=== PATIENT | male | born 1950 | race Caucasian/White ===

== ENCOUNTER 2016-10-23 17:34 | Emergency (ER) | payer MEDICAID ==
[~2016-10-23] VITALS: Ht 177.8 cm; Wt 91.3 kg
[~2016-10-23 17:34] MED LIST: AMIT50TA PO; AMLO10TA2 PO; ASPI-496 PO; DULO20CA45 PO; ERTA1VIA IM/IV; GABA300C PO; GABA300C10 PO; GABA600T2 PO; INSU100V5 SQ-INSULIN; METF10002 PO; OXYC-302 PO
[2016-10-23] MEDS ORDERED: SODIUM CHLORIDE 0.9% 1,000ML IVBOLUS ONE (18:00)
[2016-10-23] MEDS ORDERED: SODIUM CHLORIDE FLUSH 10ML SYR IVF ONE (18:00)
[2016-10-23 18:15] LABS: HEMATOCRIT 26.5 % (39.2-51.8); HEMOGLOBIN 9.2 g/dL (13.7-18.0); WHITE BLOOD COUNT 8.1 x10^3/uL (3.4-10)
[2016-10-23 18:29] LABS: ASPARTATE AMINO TRANSFERASE 14 U/L (15-37); BLOOD UREA NITROGEN 28 mg/dL (7-18)
[2016-10-23] MEDS ORDERED: OXYC1TAB9 PO (18:53)
[2016-10-23] MEDS ORDERED: CLINDAMYCIN PMX 900MG/50ML 50 ML ONE (19:21)
[2016-10-23] MEDS ORDERED: CLINDAMYCIN PMX 900MG/50ML 50 ML IV ONE (19:30)
[2016-10-23 20:19] VITALS: BP 144/73
== END 2016-10-23 20:58 | disposition left against medical advice (07) ==
LOC: ED 20:30
DX: M86.172 Other acute osteomyelitis, left ankle and foot (principal); E11.65 Type 2 diabetes mellitus with hyperglycemia; I10 Essential (primary) hypertension; E11.42 Type 2 diabetes mellitus with diabetic polyneuropathy; Z89.511 Acquired absence of right leg below knee
CPT/HCPCS: 36415; 73660; 80053; 83605; 84145; 85025; 87040; 87070; 87077; 87186; 87205; 96361; 96374; 99285; J7030

== ENCOUNTER 2016-11-11 00:08 | Inpatient (IN) | payer MEDICAID ==
[~2016-11-11] VITALS: Ht 177.8 cm; Wt 100.5 kg
[~2016-11-11 00:08] MED LIST changes: +OXYC1TAB9 PO
[2016-11-11] MEDS ORDERED: SODIUM CHLORIDE 0.9% 1,000ML IVBOLUS ONE (01:00)
[2016-11-11] MEDS ORDERED: SODIUM CHLORIDE FLUSH 10ML SYR IVF ONE (01:00)
[2016-11-11] MEDS ORDERED: VANCOMYCIN PER PHARMACY MC ONE (01:00)
[2016-11-11] MEDS ORDERED: PIPERACILLIN/TAZO/PMX 3.375GM 50 ML IV ONE (01:00)
[2016-11-11] MEDS ORDERED: PIPERACILLIN/TAZO/PMX 3.375GM 50 ML ONE (01:21)
[2016-11-11 01:28] LABS: HEMOGLOBIN 7.3 g/dL (13.7-18.0)
[2016-11-11] MEDS ORDERED: VANCOMYCIN 1,800 MG in SODIUM CHLORIDE 0.9% 250 ML IV ONE (01:30)
[2016-11-11] MEDS ORDERED: BROM5DRO3 EACHEYE ×2 (01:34→01:36)
[2016-11-11] MEDS ORDERED: PRED1DRO EACHEYE (01:36)
[2016-11-11 01:39] LABS: HEMATOCRIT 21.8 % (39.2-51.8)
[2016-11-11 01:40] LABS: BLOOD UREA NITROGEN 25 mg/dL (7-18)
[2016-11-11 01:45] LABS: ANISOCYTOSIS 1+; OVALOCYTES 2+; POIKILOCYTOSIS 1+
[2016-11-11 01:46] LABS: HYPOCHROMIA 1+
[2016-11-11] MEDS ORDERED: SODIUM CHLORIDE 0.9% 1,000 ML IV ONE (02:38)
[2016-11-11] MEDS ORDERED: MORPHINE SULFATE 4 MG/ML, 1ML ONE (02:54)
[2016-11-11] MEDS ORDERED: ONDANSETRON 2MG/ML, 2ML ONE (02:54)
[2016-11-11] MEDS ORDERED: MORPHINE SULFATE 4 MG/ML, 1ML IVPush PRN (03:00)
[2016-11-11] MEDS ORDERED: ONDANSETRON 2MG/ML, 2ML IVPush PRN ×3 (03:00→13:00)
[2016-11-11 03:30] VITALS: BP 135/71
[2016-11-11] MEDS ORDERED: LABETALOL 5MG/ML, 20ML IVPush PRN (03:30)
[2016-11-11] MEDS ORDERED: PHARMACY MAY ADJ FOR RENAL FX MC PRN (03:30)
[2016-11-11] MEDS ORDERED: HYDROcodone/APAP 5/325 TABLET PO PRN (03:30)
[2016-11-11] MEDS ORDERED: BISACODYL 10 MG SUPP PR PRN (03:30)
[2016-11-11] MEDS ORDERED: ONDANSETRON ODT 4 MG PO PRN (03:30)
[2016-11-11] MEDS: SODIUM CHLORIDE 0.9% 1,000 ML IV SCH ×3 (04:10→17:34)
[2016-11-11] MEDS: morphine SULFATE 10 MG/ML, 1ML IVPush PRN ×4 (04:35→17:30)
[2016-11-11] MEDS: predniSOLONE OPHTH SUSP 1%, 5ML EACHEYE SCH ×4 (06:29→21:12)
[2016-11-11 07:37] VITALS: BP 120/66
[2016-11-11] MEDS: PIPERACILLIN/TAZO/PMX 3.375GM 50 ML IV SCH ×3 (08:13→21:11)
[2016-11-11] MEDS: [UNRECOGNIZED DRUG - OTHER] OP SCH (09:00)
[2016-11-11] MEDS: Bromfenac Sodium (Bromsite) EACHEYE SCH (09:00)
[2016-11-11] MEDS: AMLODIPINE 5 MG TABLET PO SCH (09:46)
[2016-11-11] MEDS: GABAPENTIN 300 MG CAPSULE PO SCH ×3 (09:47→21:12)
[2016-11-11] MEDS: ASPIRIN 81 MG TABLET EC PO SCH (09:47)
[2016-11-11] MEDS: SENNA/DOCUSATE TABLET PO SCH (09:47)
[2016-11-11] MEDS ORDERED: MIDAZOLAM 1 MG/ML, 2ML ONE (12:33)
[2016-11-11] MEDS ORDERED: FENTANYL PF 100 MCG/2ML ONE (12:34)
[2016-11-11] MEDS ORDERED: PROPOFOL 10 MG/ML, 20ML ONE (12:47)
[2016-11-11] MEDS ORDERED: CEFAZOLIN 1,000 MG ONE (12:47)
[2016-11-11] MEDS ORDERED: OXYcodone 5 MG/5 ML ORAL.SOL UDC PO PRN (13:00)
[2016-11-11] MEDS ORDERED: PROMETHAZINE 25 MG/ML, 1ML IV PRN (13:00)
[2016-11-11] MEDS ORDERED: HYDROmorphone 1 MG/ML, 1ML IV PRN (13:00)
[2016-11-11] MEDS ORDERED: LABETALOL 5MG/ML, 20ML IV PRN (13:00)
[2016-11-11] MEDS ORDERED: hydrALAzine 20 MG/ML, 1ML IV PRN (13:00)
[2016-11-11] MEDS ORDERED: FENTANYL PF 100 MCG/2ML IV PRN (13:00)
[2016-11-11] MEDS ORDERED: VANCOMYCIN 1,000 MG ONE (13:08)
[2016-11-11] MEDS ORDERED: VANCOMYCIN 1,000 MG IM ONE (13:14)
[2016-11-11 14:36] VITALS: BP 121/56
[2016-11-11 19:30] VITALS: BP 122/70
[2016-11-12 00:22] VITALS: BP 116/70
[2016-11-12] MEDS: SODIUM CHLORIDE 0.9% 1,000 ML IV SCH ×2 (01:59→11:31)
[2016-11-12] MEDS: morphine SULFATE 10 MG/ML, 1ML IVPush PRN ×4 (02:04→20:05)
[2016-11-12 04:09] VITALS: BP 113/52
[2016-11-12] MEDS: PIPERACILLIN/TAZO/PMX 3.375GM 50 ML IV SCH ×4 (04:14→21:22)
[2016-11-12] MEDS: predniSOLONE OPHTH SUSP 1%, 5ML EACHEYE SCH ×4 (06:21→20:05)
[2016-11-12 08:41] VITALS: BP 117/61
[2016-11-12] MEDS: [UNRECOGNIZED DRUG - OTHER] OP SCH (09:00)
[2016-11-12] MEDS: Bromfenac Sodium (Bromsite) EACHEYE SCH (09:00)
[2016-11-12] MEDS: GABAPENTIN 300 MG CAPSULE PO SCH ×3 (09:02→21:21)
[2016-11-12] MEDS: SENNA/DOCUSATE TABLET PO SCH (09:02)
[2016-11-12] MEDS: ASPIRIN 81 MG TABLET EC PO SCH (09:02)
[2016-11-12] MEDS: AMLODIPINE 5 MG TABLET PO SCH (09:02)
[2016-11-12 13:20] LABS: WHITE BLOOD COUNT 4.1 x10^3/uL (3.4-10)
[2016-11-12 13:22] LABS: BLOOD UREA NITROGEN 9 mg/dL (7-18); HEMATOCRIT 20.9 % (39.2-51.8)
[2016-11-12 13:41] LABS: OVALOCYTES 2+; POIKILOCYTOSIS 2+
[2016-11-12 13:44] LABS: ANISOCYTOSIS 1+; POLYCHROMASIA 1+
[2016-11-12 14:57] VITALS: BP 125/55
[2016-11-12] MEDS ORDERED: INSULIN DETEMIR 100 UNITS/ML, PEN SQ-INSULIN ONE (15:30)
[2016-11-12] MEDS: ENOXAPARIN 40 MG/0.4 ML SQ SCH (20:06)
[2016-11-12 20:33] VITALS: BP 128/52
[2016-11-12] MEDS: INSULIN DETEMIR 100 UNITS/ML, PEN SQ-INSULIN SCH (21:31)
[2016-11-12 23:42] VITALS: BP 122/63
[2016-11-13] VITALS (7 sets, daily range): BP systolic 106–139; BP diastolic 52–71
[2016-11-13] MEDS ORDERED: SODIUM CHLORIDE 0.9% 1,000 ML IV SCH (03:20)
[2016-11-13] MEDS: PIPERACILLIN/TAZO/PMX 3.375GM 50 ML IV SCH ×4 (03:27→21:56)
[2016-11-13] MEDS: predniSOLONE OPHTH SUSP 1%, 5ML EACHEYE SCH ×4 (05:53→20:22)
[2016-11-13] MEDS: [UNRECOGNIZED DRUG - OTHER] OP SCH (08:13)
[2016-11-13] MEDS: ASPIRIN 81 MG TABLET EC PO SCH (08:13)
[2016-11-13] MEDS: SENNA/DOCUSATE TABLET PO SCH (08:13)
[2016-11-13] MEDS: AMLODIPINE 5 MG TABLET PO SCH (08:13)
[2016-11-13] MEDS: Bromfenac Sodium (Bromsite) EACHEYE SCH (08:13)
[2016-11-13] MEDS: GABAPENTIN 300 MG CAPSULE PO SCH ×3 (08:13→20:22)
[2016-11-13] MEDS: morphine SULFATE 10 MG/ML, 1ML IVPush PRN ×3 (08:15→20:29)
[2016-11-13 09:01] LABS: HEMATOCRIT 23.4 % (39.2-51.8); WHITE BLOOD COUNT 2.9 x10^3/uL (3.4-10)
[2016-11-13 09:02] LABS: DIFF TOTAL CELLS COUNTED 100 CELL DIFF
[2016-11-13 09:08] LABS: BLOOD UREA NITROGEN 7 mg/dL (7-18)
[2016-11-13] MEDS: INSULIN DETEMIR 100 UNITS/ML, PEN SQ-INSULIN SCH ×2 (09:31→20:22)
[2016-11-13 09:36] LABS: ANISOCYTOSIS 1+; MICROCYTOSIS 1+; OVALOCYTES 2+; POIKILOCYTOSIS 2+
[2016-11-13 09:37] LABS: VERIFY COUNTS? YES
[2016-11-13] MEDS: ENOXAPARIN 40 MG/0.4 ML SQ SCH (20:22)
[2016-11-13] MEDS: AMITRIPTYLINE 50 MG TABLET PO SCH (21:56)
[2016-11-14] MEDS: PIPERACILLIN/TAZO/PMX 3.375GM 50 ML IV SCH ×4 (04:00→21:39)
[2016-11-14] MEDS: predniSOLONE OPHTH SUSP 1%, 5ML EACHEYE SCH ×4 (06:30→21:40)
[2016-11-14 08:17] LABS: BLOOD UREA NITROGEN 9 mg/dL (7-18)
[2016-11-14 08:23] LABS: HEMATOCRIT 23.1 % (39.2-51.8); WHITE BLOOD COUNT 2.5 x10^3/uL (3.4-10)
[2016-11-14] MEDS: [UNRECOGNIZED DRUG - OTHER] OP SCH (09:00)
[2016-11-14] MEDS: Bromfenac Sodium (Bromsite) EACHEYE SCH (09:00)
[2016-11-14] MEDS: SENNA/DOCUSATE TABLET PO SCH (09:00)
[2016-11-14] MEDS: AMLODIPINE 5 MG TABLET PO SCH (10:09)
[2016-11-14] MEDS: ASPIRIN 81 MG TABLET EC PO SCH (10:09)
[2016-11-14] MEDS: GABAPENTIN 300 MG CAPSULE PO SCH ×3 (10:09→22:09)
[2016-11-14] MEDS: INSULIN DETEMIR 100 UNITS/ML, PEN SQ-INSULIN SCH ×2 (10:12→22:08)
[2016-11-14 11:31] LABS: HYPOCHROMIA 1+; OVALOCYTES 3+; POIKILOCYTOSIS 1+
[2016-11-14 11:32] LABS: ANISOCYTOSIS 1+
[2016-11-14 14:04] VITALS: BP 112/53
[2016-11-14 14:47] VITALS: BP 112/68
[2016-11-14 20:28] VITALS: BP 119/68
[2016-11-14] MEDS: morphine SULFATE 10 MG/ML, 1ML IVPush PRN (21:38)
[2016-11-14] MEDS: AMITRIPTYLINE 50 MG TABLET PO SCH (21:39)
[2016-11-14] MEDS: ENOXAPARIN 40 MG/0.4 ML SQ SCH (22:10)
[2016-11-15 03:06] VITALS: BP 122/71
[2016-11-15] MEDS: PIPERACILLIN/TAZO/PMX 3.375GM 50 ML IV SCH ×4 (03:46→21:50)
[2016-11-15] MEDS: predniSOLONE OPHTH SUSP 1%, 5ML EACHEYE SCH ×4 (06:34→20:10)
[2016-11-15 07:20] VITALS: BP 112/64
[2016-11-15] MEDS: [UNRECOGNIZED DRUG - OTHER] OP SCH (07:49)
[2016-11-15] MEDS: Bromfenac Sodium (Bromsite) EACHEYE SCH (07:49)
[2016-11-15] MEDS: AMLODIPINE 5 MG TABLET PO SCH (07:53)
[2016-11-15] MEDS: GABAPENTIN 300 MG CAPSULE PO SCH ×3 (07:53→20:10)
[2016-11-15] MEDS: ASPIRIN 81 MG TABLET EC PO SCH (07:53)
[2016-11-15] MEDS: SENNA/DOCUSATE TABLET PO SCH ×2 (07:53→08:01)
[2016-11-15] MEDS: morphine SULFATE 10 MG/ML, 1ML IVPush PRN ×2 (07:58→21:50)
[2016-11-15] MEDS: INSULIN DETEMIR 100 UNITS/ML, PEN SQ-INSULIN SCH ×2 (07:59→20:11)
[2016-11-15 12:41] VITALS: BP 112/70
[2016-11-15] MEDS ORDERED: [UNRECOGNIZED DRUG - OTHER] HOMEINJ ONE (13:30)
[2016-11-15] MEDS ORDERED: FLU VACCINE PER PHARMACY IM ONE (13:30)
[2016-11-15] MEDS ORDERED: FLU VACC QS2017-18 (36MOS+) UP/PF 0.5 ML IM-VACC ONE (14:00)
[2016-11-15] MEDS: ENOXAPARIN 40 MG/0.4 ML SQ SCH (18:31)
[2016-11-15 18:42] VITALS: BP 118/65
[2016-11-15] MEDS: AMITRIPTYLINE 50 MG TABLET PO SCH (20:10)
[2016-11-16 01:39] VITALS: BP 123/68
[2016-11-16] MEDS: PIPERACILLIN/TAZO/PMX 3.375GM 50 ML IV SCH ×3 (04:11→16:05)
[2016-11-16] MEDS: predniSOLONE OPHTH SUSP 1%, 5ML EACHEYE SCH ×4 (05:03→19:55)
[2016-11-16 05:24] LABS: HEMATOCRIT 26.6 % (39.2-51.8); WHITE BLOOD COUNT 3.2 x10^3/uL (3.4-10)
[2016-11-16 05:29] LABS: BLOOD UREA NITROGEN 17 mg/dL (7-18)
[2016-11-16 08:00] VITALS: BP 129/64
[2016-11-16] MEDS: ASPIRIN 81 MG TABLET EC PO SCH (08:07)
[2016-11-16] MEDS: [UNRECOGNIZED DRUG - OTHER] OP SCH (08:07)
[2016-11-16] MEDS: Bromfenac Sodium (Bromsite) EACHEYE SCH (08:07)
[2016-11-16] MEDS: AMLODIPINE 5 MG TABLET PO SCH (08:07)
[2016-11-16] MEDS: GABAPENTIN 300 MG CAPSULE PO SCH ×3 (08:08→19:55)
[2016-11-16] MEDS: SENNA/DOCUSATE TABLET PO SCH (08:08)
[2016-11-16] MEDS: INSULIN DETEMIR 100 UNITS/ML, PEN SQ-INSULIN SCH ×2 (08:12→20:04)
[2016-11-16 13:43] VITALS: BP 115/67
[2016-11-16] MEDS: PIPERACILLIN/TAZO/PMX 4.5GM 100 ML IV SCH ×2 (16:30→22:23)
[2016-11-16] MEDS: ENOXAPARIN 40 MG/0.4 ML SQ SCH (18:21)
[2016-11-16 18:46] VITALS: BP 139/62
[2016-11-16] MEDS: AMITRIPTYLINE 50 MG TABLET PO SCH (19:55)
[2016-11-16] MEDS: morphine SULFATE 10 MG/ML, 1ML IVPush PRN (22:24)
[2016-11-17 00:48] VITALS: BP 115/67
[2016-11-17] MEDS: predniSOLONE OPHTH SUSP 1%, 5ML EACHEYE SCH ×4 (05:04→20:57)
[2016-11-17] MEDS: PIPERACILLIN/TAZO/PMX 4.5GM 100 ML IV SCH ×4 (05:04→21:28)
[2016-11-17 05:29] LABS: HEMATOCRIT 25.2 % (39.2-51.8); HEMOGLOBIN 8.6 g/dL (13.7-18.0); WHITE BLOOD COUNT 3.2 x10^3/uL (3.4-10)
[2016-11-17 05:38] LABS: BLOOD UREA NITROGEN 17 mg/dL (7-18)
[2016-11-17 07:40] VITALS: BP 127/77
[2016-11-17] MEDS: ASPIRIN 81 MG TABLET EC PO SCH (07:49)
[2016-11-17] MEDS: Bromfenac Sodium (Bromsite) EACHEYE SCH (07:49)
[2016-11-17] MEDS: AMLODIPINE 5 MG TABLET PO SCH (07:49)
[2016-11-17] MEDS: [UNRECOGNIZED DRUG - OTHER] OP SCH (07:49)
[2016-11-17] MEDS: GABAPENTIN 300 MG CAPSULE PO SCH ×3 (07:49→20:57)
[2016-11-17] MEDS: SENNA/DOCUSATE TABLET PO SCH (07:49)
[2016-11-17] MEDS: morphine SULFATE 10 MG/ML, 1ML IVPush PRN ×2 (07:55→21:28)
[2016-11-17] MEDS: INSULIN DETEMIR 100 UNITS/ML, PEN SQ-INSULIN SCH ×2 (07:58→21:02)
[2016-11-17 15:37] VITALS: BP 119/70
[2016-11-17] MEDS: ENOXAPARIN 40 MG/0.4 ML SQ SCH (18:05)
[2016-11-17 19:12] VITALS: BP 148/76
[2016-11-17] MEDS: AMITRIPTYLINE 50 MG TABLET PO SCH (20:57)
[2016-11-18 01:03] VITALS: BP 145/75
[2016-11-18] MEDS: predniSOLONE OPHTH SUSP 1%, 5ML EACHEYE SCH ×4 (05:02→21:07)
[2016-11-18] MEDS: PIPERACILLIN/TAZO/PMX 4.5GM 100 ML IV SCH ×4 (05:02→23:12)
[2016-11-18 05:23] LABS: HEMATOCRIT 26.4 % (39.2-51.8); HEMOGLOBIN 8.9 g/dL (13.7-18.0); WHITE BLOOD COUNT 3.5 x10^3/uL (3.4-10)
[2016-11-18 05:32] LABS: BLOOD UREA NITROGEN 21 mg/dL (7-18)
[2016-11-18 05:36] LABS: ASPARTATE AMINO TRANSFERASE 31 U/L (15-37); C-REACTIVE PROTEIN, QUANT 0.73 mg/dL (0.02-0.49)
[2016-11-18 07:38] VITALS: BP 124/72
[2016-11-18] MEDS: [UNRECOGNIZED DRUG - OTHER] OP SCH (08:06)
[2016-11-18] MEDS: Bromfenac Sodium (Bromsite) EACHEYE SCH (08:06)
[2016-11-18] MEDS: GABAPENTIN 300 MG CAPSULE PO SCH ×3 (08:07→21:07)
[2016-11-18] MEDS: AMLODIPINE 5 MG TABLET PO SCH (08:08)
[2016-11-18] MEDS: SENNA/DOCUSATE TABLET PO SCH (08:08)
[2016-11-18] MEDS: ASPIRIN 81 MG TABLET EC PO SCH (08:08)
[2016-11-18] MEDS: INSULIN DETEMIR 100 UNITS/ML, PEN SQ-INSULIN SCH ×2 (08:09→21:14)
[2016-11-18] MEDS: morphine SULFATE 10 MG/ML, 1ML IVPush PRN ×2 (08:15→21:07)
[2016-11-18 13:10] VITALS: BP 118/64
[2016-11-18] MEDS: ENOXAPARIN 40 MG/0.4 ML SQ SCH (17:51)
[2016-11-18 19:37] VITALS: BP 118/66
[2016-11-18] MEDS: AMITRIPTYLINE 50 MG TABLET PO SCH (21:07)
[2016-11-19 03:05] VITALS: BP 104/61
[2016-11-19] MEDS: PIPERACILLIN/TAZO/PMX 4.5GM 100 ML IV SCH ×2 (05:32→12:38)
[2016-11-19] MEDS: predniSOLONE OPHTH SUSP 1%, 5ML EACHEYE SCH ×3 (05:52→15:32)
[2016-11-19 06:04] LABS: HEMATOCRIT 25.6 % (39.2-51.8); HEMOGLOBIN 8.8 g/dL (13.7-18.0); WHITE BLOOD COUNT 3.2 x10^3/uL (3.4-10)
[2016-11-19 06:10] LABS: BLOOD UREA NITROGEN 23 mg/dL (7-18)
[2016-11-19 06:13] LABS: ASPARTATE AMINO TRANSFERASE 16 U/L (15-37)
[2016-11-19 06:27] LABS: ANISOCYTOSIS 1+; OVALOCYTES 3+; POIKILOCYTOSIS 3+; POLYCHROMASIA 1+
[2016-11-19 07:07] VITALS: BP 110/63
[2016-11-19] MEDS: [UNRECOGNIZED DRUG - OTHER] OP SCH (08:30)
[2016-11-19] MEDS: GABAPENTIN 300 MG CAPSULE PO SCH (08:30)
[2016-11-19] MEDS: INSULIN DETEMIR 100 UNITS/ML, PEN SQ-INSULIN SCH (08:30)
[2016-11-19] MEDS: Bromfenac Sodium (Bromsite) EACHEYE SCH (08:30)
[2016-11-19] MEDS: morphine SULFATE 10 MG/ML, 1ML IVPush PRN (08:30)
[2016-11-19] MEDS: ASPIRIN 81 MG TABLET EC PO SCH (08:30)
[2016-11-19] MEDS: AMLODIPINE 5 MG TABLET PO SCH (08:30)
[2016-11-19] MEDS: SENNA/DOCUSATE TABLET PO SCH (08:30)
[2016-11-19 13:36] VITALS: BP 107/64
[2016-11-19] MEDS ORDERED: INSU100I28 SQ-INSULIN ×2 (13:43)
[2016-11-19 15:33] VITALS: BP 103/67
== END 2016-11-19 16:45 | DRG 255 ==
LOC: ED 00:55 → EDIP 02:38 → 4NOR 03:25
PROVIDERS: ADMIT Hospitalist; ATTEND Hospitalist
PROC: 0Y6S0Z0 Detachment at Left 2nd Toe, Complete, Open Approach (ICD-10-PCS; 2016-11-11)
PROC: 0JBR0ZZ Excision of Left Foot Subcutaneous Tissue and Fascia, Open Approach (ICD-10-PCS; 2016-11-11)
PROC: 0Y6U0Z0 Detachment at Left 3rd Toe, Complete, Open Approach (ICD-10-PCS; 2016-11-11)
PROC: 30233N1 Transfusion of Nonautologous Red Blood Cells into Peripheral Vein, Percutaneous Approach (ICD-10-PCS; principal; 2016-11-12)
PROC: 02HV33Z Insertion of Infusion Device into Superior Vena Cava, Percutaneous Approach (ICD-10-PCS; 2016-11-16)
PROC: B5181ZA Fluoroscopy of Superior Vena Cava using Low Osmolar Contrast, Guidance (ICD-10-PCS; 2016-11-16)
DX: E11.52 Type 2 diabetes mellitus with diabetic peripheral angiopathy with gangrene (principal); N17.0 Acute kidney failure with tubular necrosis; I13.0 Hypertensive heart and chronic kidney disease with heart failure and stage 1 through stage 4 chronic kidney disease, or unspecified chronic kidney disease; I50.30 Unspecified diastolic (congestive) heart failure; E87.1 Hypo-osmolality and hyponatremia; M86.172 Other acute osteomyelitis, left ankle and foot; E11.22 Type 2 diabetes mellitus with diabetic chronic kidney disease; D50.0 Iron deficiency anemia secondary to blood loss (chronic); E11.42 Type 2 diabetes mellitus with diabetic polyneuropathy; E11.621 Type 2 diabetes mellitus with foot ulcer; E11.622 Type 2 diabetes mellitus with other skin ulcer; E11.628 Type 2 diabetes mellitus with other skin complications; E11.65 Type 2 diabetes mellitus with hyperglycemia; E11.69 Type 2 diabetes mellitus with other specified complication; F32.9 Major depressive disorder, single episode, unspecified; G60.8 Other hereditary and idiopathic neuropathies; G89.29 Other chronic pain; L97.509 Non-pressure chronic ulcer of other part of unspecified foot with unspecified severity; N18.2 Chronic kidney disease, stage 2 (mild); S92.502A Displaced unspecified fracture of left lesser toe(s), initial encounter for closed fracture; Z79.84 Long term (current) use of oral hypoglycemic drugs; Z83.3 Family history of diabetes mellitus; Z87.891 Personal history of nicotine dependence; Z89.429 Acquired absence of other toe(s), unspecified side; Z89.511 Acquired absence of right leg below knee
CPT/HCPCS: 36415; 36569; 76937; 77001; 80048; 80053; 81001; 82040; 82962; 83036; 83605; 83735; 84145; 84439; 84443; 85025; 85610; 85651; 85730; 86140; 86850; 86900; 86923; 87040; 87070; 87075; 87077; 87086; 87176; 87186; 87205; 88305; 88311; 93005; 93306; 96365; 96375; J0690; J1650; J2250; J2405; J2543; J2704; J3010; J3370; C1751; J1815; J2270; J7030; J7050; P9016